=== PATIENT | female | born 1970 | race Caucasian/White ===

== ENCOUNTER → 2019-05-27 | Outpatient (CLI) | payer OTHER ==
[~2019-05-27] MED LIST: IOHEXOL 300 MG/ML 100ML VIAL. IV ONE
--- NOTE | 2019-05-27 12:18 | RAD ---
PQRS Compliance statement: One or more of the following individualized dose reduction techniques were utilized for this examination: 1. Automated exposure control. 2. Adjustment of the mA and/or kV according to patient size. 3. Use of iterative reconstruction technique. Indication:Right flank pain. Abdominal pain. TECHNIQUE: CT abdomen and pelvis without and with IV contrast with multiplanar reformats. MIP reformats were performed. COMPARISON: None FINDINGS: Heart is normal in size. No pericardial or pleural effusion. Clear lung bases. Liver, spleen, pancreas, adrenals within normal limits. Nonobstructing 9 mm oval-shaped stone is seen in the inferior pole collecting system of the right kidney. No solid or cystic renal lesion. Bilateral ureters are normal in course and caliber. No free pelvic fluid or ascites. No enlarged retroperitoneal or pelvic adenopathy. Circumaortic left renal vein. No bowel obstruction. Normal appendix. No radiopaque stones in the urinary bladder. No suspicious bony lesion. IMPRESSION: Nonobstructing inferior pole right renal stone. Electronically signed by: Talon Hurley DO (05/27/2019 12:15 PM) [facility]
== END | disposition home or self-care (01) ==
LOC: CT 10:35
PROVIDERS: ATTEND Family Medicine
DX: N20.0 Calculus of kidney (principal); R30.0 Dysuria
CPT/HCPCS: 74178; Q9967